=== PATIENT | female | born 1960 | race African-American/Black ===

== ENCOUNTER 2018-03-02 11:22 | Inpatient (IN) | payer MEDICARE, MEDICAID ==
--- NOTE | 2018-03-02 15:51 | HP ---
REASON FOR TRANSFER: Debilitation and weakness. HISTORY OF PRESENT ILLNESS: The patient is a 58-year-old -[place] female with a history of s evere cervical spinal stenosis and peripheral neuropathy with weakness in her upper and lower extremi ties, who apparently fell at her home and was down for almost 24 hours until her daughter found her. She was sent to the emergency room at [facility] and admitted with elevated t roponins, which ruled out for an SC with normal imaging studies. The patient did have significant rh abdomyolysis in addition to her cervical spinal stenosis that was evaluated by Neurosurgery and recom mended to have outpatient followup. Her rhabdomyolysis significantly improved with IV and oral hydra tion in time. The patient though continue to be extremely weak, was unable to care for herself and t hus was appropriate for continued inpatient physical and occupational therapy and is being transferre d to [facility] bed unit. DISCHARGE MEDICATIONS AND ADMISSION MEDICATIONS: Amlodipine 5 mg daily, Cozaar 100 mg daily, Lopress or 12.5 mg b.i.d., DuoNebs p.r.n., and Imodium p.r.n. PAST MEDICAL HISTORY: History of hypertension, COPD, history of CVA, history of multiple TIAs in the past, history of chronic pain, history of migraine headaches, history of benign paroxysmal vertigo, history of bradycardia. PAST SURGICAL HISTORY: Significant for appendectomy. SOCIAL HISTORY: The patient denies any alcohol, smoking or social drug use. She lives with her daparish hter in the [facility] and had been independent in most activities of daily living, although she h as had progressive difficulty with ambulation, requiring a walker due to her peripheral neuropathy an d weakness. FAMILY HISTORY: Positive for mother and father with hypertension and coronary artery disease. REVIEW OF SYSTEMS: Presently, the patient reports her neck pain has significantly improved from her admission, although she still has some pain. She reports chronic weakness and decreased function and use of her upper extremities. She does report debility to wiggle her toes, but has decreased sensat ion to her lower extremities as well. Denies any visual changes, no sore throat, no chest pain or sh ortness of breath. No fevers, chills or night sweats. No nausea, vomiting, or diarrhea. She report s her appetite at baseline. No abdominal pain. No dysuria, hematuria, or change in urinary frequenc y. The patient denies any significant weight loss or weight gain. No significant low back pain repo rted. No recent rashes. PHYSICAL EXAMINATION: VITAL SIGNS: Blood pressure 144/70, respiratory rate 16, pulse is 63. The patient is afebrile, temp erature 98.2. GENERAL: Thin -[place] female, alert and oriented, in no obvious distress, slightly slurred speech noted. HEENT: Atraumatic. Oropharynx, mucous membranes were moist. NECK: Supple, no masses palpated. CHEST: Had some coarse breath sounds, otherwise clear to auscultation. HEART: Regular rate and rhythm. ABDOMEN: Flat, soft, nontender, nondistended, no masses were palpated. EXTREMITIES: The patient had coolness to her upper and lower extremities. 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 PSYCHIATRIC: The patient was in appropriate mood without any anxiety. ASSESSMENT AND PLAN: 1. Diffuse debilitation and weakness. Patient has multiple comorbidities including history of cereb rovascular accident and peripheral neuropathy with weakness in her extremities. Physical therapy and occupational therapy will be ordered. She will be a fall risk and fall precautions will be recommen ded. 2. Hypertension. We will continue patient on amlodipine for now and follow her blood pressures. Trista jimenez is on Lopressor 12.5 mg b.i.d. and she is on DuoNeb p.r.n. She was on Lovenox for deep vein thromb osis prophylaxis, although she is at fall risk. She probably needs some kind of anticoagulation with her history of TIAs. We will consider either Lovenox versus aspirin, SCDs will be ordered, if the p atient is not to ambulatory. 3. Chronic obstructive pulmonary disease, DuoNebs p.r.n. DISPOSITION: Discussed with patient possible long-term plans. She will have difficulty living indep endently due to her multiple comorbidities. Initially did discuss with her long-term placement. She wants to see how she does in therapy and will rediscuss prior discharge. The patient is a DNR by he r wishes.
[2018-03-02] MEDS ORDERED: Milk Of Magnesia 30 ML UDCUP PO PRN (18:27)
[2018-03-02] MEDS ORDERED: Bisacodyl 5 MG TAB PO PRN (18:27)
[2018-03-02] MEDS ORDERED: Loperamide HCl 2 MG CAP PO PRN (18:29)
[2018-03-02] MEDS ORDERED: Acetaminophen 325 MG TAB ONE (22:00)
[2018-03-02] MEDS: Metoprolol Tartrate 25 MG TAB PO SCH (22:04)
[2018-03-02] MEDS: Acetaminophen 325 MG TAB PO PRN (22:05)
[2018-03-03] MEDS: Amlodipine 5 MG TAB PO SCH (09:30)
[2018-03-03] MEDS: Losartan Potassium 50 MG TAB PO SCH (09:31)
[2018-03-03] MEDS: Metoprolol Tartrate 25 MG TAB PO SCH ×2 (09:31→20:09)
[2018-03-03] MEDS: Acetaminophen 325 MG TAB PO PRN (20:09)
[2018-03-04] MEDS: Losartan Potassium 50 MG TAB PO SCH (09:55)
[2018-03-04] MEDS: Metoprolol Tartrate 25 MG TAB PO SCH ×2 (09:56→22:26)
[2018-03-04] MEDS: Amlodipine 5 MG TAB PO SCH (09:56)
[2018-03-04] MEDS ORDERED: Sodium Chloride 0.9% 0 ML ONE (13:46)
[2018-03-04] MEDS: Acetaminophen 325 MG TAB PO PRN (22:26)
[2018-03-05 04:42] LABS: Sodium 134 mmol/L (136-145)
[2018-03-05] MEDS: Acetaminophen 325 MG TAB PO PRN ×2 (08:06→21:59)
[2018-03-05] MEDS: Metoprolol Tartrate 25 MG TAB PO SCH ×2 (08:33→21:59)
[2018-03-05] MEDS: Amlodipine 5 MG TAB PO SCH (08:34)
[2018-03-05] MEDS: Losartan Potassium 50 MG TAB PO SCH (08:34)
[2018-03-06] MEDS: Acetaminophen 325 MG TAB PO PRN (01:58)
[2018-03-06] MEDS: Metoprolol Tartrate 25 MG TAB PO SCH ×2 (10:29→20:41)
[2018-03-06] MEDS: Losartan Potassium 50 MG TAB PO SCH (10:30)
[2018-03-06] MEDS: Amlodipine 5 MG TAB PO SCH (10:30)
[2018-03-07] MEDS: Metoprolol Tartrate 25 MG TAB PO SCH ×2 (08:39→20:34)
[2018-03-07] MEDS: Amlodipine 5 MG TAB PO SCH (08:40)
[2018-03-07] MEDS: Losartan Potassium 50 MG TAB PO SCH (08:40)
[2018-03-08] MEDS: Amlodipine 5 MG TAB PO SCH (09:44)
[2018-03-08] MEDS: Losartan Potassium 50 MG TAB PO SCH (09:45)
[2018-03-08] MEDS: Metoprolol Tartrate 25 MG TAB PO SCH ×2 (09:46→20:55)
[2018-03-08] MEDS: Acetaminophen 325 MG TAB PO PRN (23:39)
[2018-03-09] MEDS: Amlodipine 5 MG TAB PO SCH (09:56)
[2018-03-09] MEDS: Losartan Potassium 50 MG TAB PO SCH (09:57)
[2018-03-09] MEDS: Metoprolol Tartrate 25 MG TAB PO SCH ×2 (09:57→20:57)
[2018-03-10] MEDS: Metoprolol Tartrate 25 MG TAB PO SCH ×2 (09:36→20:57)
[2018-03-10] MEDS: Losartan Potassium 50 MG TAB PO SCH (09:36)
[2018-03-10] MEDS: Amlodipine 5 MG TAB PO SCH (09:37)
[2018-03-11] MEDS: Acetaminophen 325 MG TAB PO PRN (05:37)
[2018-03-11] MEDS: Amlodipine 5 MG TAB PO SCH (09:23)
[2018-03-11] MEDS: Losartan Potassium 50 MG TAB PO SCH (09:25)
[2018-03-11] MEDS: Metoprolol Tartrate 25 MG TAB PO SCH ×2 (09:26→20:07)
[2018-03-12] MEDS: Furosemide 20 MG TAB PO SCH (09:00)
[2018-03-12] MEDS: Metoprolol Tartrate 25 MG TAB PO SCH ×2 (09:01→19:56)
[2018-03-12] MEDS: Amlodipine 5 MG TAB PO SCH (09:01)
[2018-03-12] MEDS: Losartan Potassium 50 MG TAB PO SCH (09:02)
[2018-03-12] MEDS: Acetaminophen 325 MG TAB PO PRN (19:50)
[2018-03-13] MEDS: Amlodipine 5 MG TAB PO SCH (09:03)
[2018-03-13] MEDS: Losartan Potassium 50 MG TAB PO SCH (09:03)
[2018-03-13] MEDS: Furosemide 20 MG TAB PO SCH (09:03)
[2018-03-13] MEDS: Metoprolol Tartrate 25 MG TAB PO SCH ×2 (09:04→20:49)
[2018-03-14] MEDS: Amlodipine 5 MG TAB PO SCH (09:31)
[2018-03-14] MEDS: Metoprolol Tartrate 25 MG TAB PO SCH ×2 (09:34→23:15)
[2018-03-14] MEDS: Losartan Potassium 50 MG TAB PO SCH (09:34)
[2018-03-14] MEDS: Furosemide 20 MG TAB PO SCH (09:34)
[2018-03-14 12:42] LABS: Bilirubin Negative (Negative); Blood, Urine Trace (Negative); Clarity SLIGHTLY (Clear); Glucose, Urine (Dipstick) Negative (Negative); Leukocyte Large (Negative); Nitrite Positive (Negative); Protein, Urine (Dipstick) Negative (Neg-Trace); Specific Gravity, Urine 1.015 (1.005-1.030)
[2018-03-14 12:46] LABS: Bacteria/HPF 4+ HPF (None Seen); Crystals/HPF None Seen HPF (Negative); Hyaline Casts/LPF NONE SEEN LPF (0-3 Hyaline); Other Casts/LPF None Seen LPF (0-3 Hyaline); Oval Fat Bodies/HPF None Seen HPF (None Seen); RBC/HPF 0-3 HPF (0-3); Renal Epithelial None Seen HPF (0-3); Sperm/HPF None Seen HPF (None Seen); Transitional Epithelial NONE SEEN HPF (0-3); Trichomonas/HPF None Seen HPF (None Seen); Yeast-All Forms None Seen HPF (None Seen)
[2018-03-14] MEDS: Acetaminophen 325 MG TAB PO PRN (23:14)
[2018-03-14] MEDS: Sulfameth/Trimethoprim DS 800-160mg TAB PO SCH (23:15)
[2018-03-15] MEDS: Losartan Potassium 50 MG TAB PO SCH (09:26)
[2018-03-15] MEDS: Amlodipine 5 MG TAB PO SCH (09:27)
[2018-03-15] MEDS: Furosemide 20 MG TAB PO SCH (09:27)
[2018-03-15] MEDS: Sulfameth/Trimethoprim DS 800-160mg TAB PO SCH ×2 (09:28→20:53)
[2018-03-15] MEDS: Metoprolol Tartrate 25 MG TAB PO SCH ×2 (09:28→20:53)
[2018-03-16] MEDS: Furosemide 20 MG TAB PO SCH (08:18)
[2018-03-16] MEDS: Losartan Potassium 50 MG TAB PO SCH (08:18)
[2018-03-16] MEDS: Metoprolol Tartrate 25 MG TAB PO SCH ×2 (08:18→20:26)
[2018-03-16] MEDS: Amlodipine 5 MG TAB PO SCH (08:19)
[2018-03-16] MEDS: Sulfameth/Trimethoprim DS 800-160mg TAB PO SCH ×2 (08:20→20:26)
[2018-03-16] MEDS: Acetaminophen 325 MG TAB PO PRN (08:20)
[2018-03-17 04:41] VITALS: BMI 26.2
[2018-03-17] MEDS: Furosemide 20 MG TAB PO SCH (08:24)
[2018-03-17] MEDS: Sulfameth/Trimethoprim DS 800-160mg TAB PO SCH ×2 (08:24→20:56)
[2018-03-17] MEDS: Metoprolol Tartrate 25 MG TAB PO SCH ×2 (08:24→20:56)
[2018-03-17] MEDS: Losartan Potassium 50 MG TAB PO SCH (08:24)
[2018-03-17] MEDS: Amlodipine 5 MG TAB PO SCH (08:24)
[2018-03-17] MEDS: Acetaminophen 325 MG TAB PO PRN (19:17)
[2018-03-18] MEDS: Losartan Potassium 50 MG TAB PO SCH (08:22)
[2018-03-18] MEDS: Sulfameth/Trimethoprim DS 800-160mg TAB PO SCH ×2 (08:22→20:35)
[2018-03-18] MEDS: Metoprolol Tartrate 25 MG TAB PO SCH ×2 (08:23→20:34)
[2018-03-18] MEDS: Amlodipine 5 MG TAB PO SCH (08:23)
[2018-03-18] MEDS: Furosemide 20 MG TAB PO SCH (08:24)
[2018-03-18] MEDS: Acetaminophen 325 MG TAB PO PRN (18:39)
[2018-03-19] MEDS: Acetaminophen 325 MG TAB PO PRN (09:05)
[2018-03-19] MEDS: Sulfameth/Trimethoprim DS 800-160mg TAB PO SCH ×2 (09:06→20:30)
[2018-03-19] MEDS: Losartan Potassium 50 MG TAB PO SCH (09:06)
[2018-03-19] MEDS: Metoprolol Tartrate 25 MG TAB PO SCH ×2 (09:07→20:30)
[2018-03-19] MEDS: Furosemide 20 MG TAB PO SCH (09:07)
[2018-03-19] MEDS: Amlodipine 5 MG TAB PO SCH (09:07)
[2018-03-20] MEDS: Furosemide 20 MG TAB PO SCH (08:39)
[2018-03-20] MEDS: Metoprolol Tartrate 25 MG TAB PO SCH ×2 (08:39→21:39)
[2018-03-20] MEDS: Losartan Potassium 50 MG TAB PO SCH (08:40)
[2018-03-20] MEDS: Amlodipine 5 MG TAB PO SCH (08:40)
[2018-03-20] MEDS: Sulfameth/Trimethoprim DS 800-160mg TAB PO SCH ×2 (08:41→21:39)
[2018-03-21 06:04] VITALS: BP 147/84; TEMP 98.3
[2018-03-21] MEDS: Sulfameth/Trimethoprim DS 800-160mg TAB PO SCH (10:19)
[2018-03-21] MEDS: Metoprolol Tartrate 25 MG TAB PO SCH (10:19)
[2018-03-21] MEDS: Furosemide 20 MG TAB PO SCH (10:19)
[2018-03-21] MEDS: Losartan Potassium 50 MG TAB PO SCH (10:19)
[2018-03-21] MEDS: Amlodipine 5 MG TAB PO SCH (10:20)
== END 2018-03-21 15:45 | disposition home health service (06) | DRG 948 ==
LOC: BURMED 16:57
PROVIDERS: ADMIT Family Medicine; ATTEND Family Medicine
DX: R53.1 Weakness (principal); M62.82 Rhabdomyolysis; M48.02 Spinal stenosis, cervical region; G62.9 Polyneuropathy, unspecified; I10 Essential (primary) hypertension; J44.9 Chronic obstructive pulmonary disease, unspecified; G89.29 Other chronic pain; Z91.81 History of falling; Z66 Do not resuscitate; I69.349 Monoplegia of lower limb following cerebral infarction affecting unspecified side; I69.339 Monoplegia of upper limb following cerebral infarction affecting unspecified side
CPT/HCPCS: 36415; 81001; 82550; 84295; 87077; 87086; 87186; G8978-GP-CK; G8979-GP-CI; G9159-GN-CI; J7050

== ENCOUNTER 2025-03-14 19:28 | Emergency (ER) | payer MEDICARE, MEDICAID | END 2025-03-14 21:30 | disposition home or self-care (01) | LOC: BURERS 19:28 | DX: S01.01XA Laceration without foreign body of scalp, initial encounter (principal); F10.129 Alcohol abuse with intoxication, unspecified; I10 Essential (primary) hypertension; J44.9 Chronic obstructive pulmonary disease, unspecified; W01.0XXA Fall on same level from slipping, tripping and stumbling without subsequent striking against object, initial encounter; Z86.73 Personal history of transient ischemic attack (TIA), and cerebral infarction without residual deficits | CPT/HCPCS: 12002; 70450; 72125; 72192 ==

== ENCOUNTER 2025-03-31 07:52 | Emergency (ER) | payer MEDICARE, MEDICAID | END 2025-03-31 08:24 | disposition home or self-care (01) | LOC: BURERS 07:52 | DX: S01.01XD Laceration without foreign body of scalp, subsequent encounter (principal); I10 Essential (primary) hypertension; J44.9 Chronic obstructive pulmonary disease, unspecified; Z86.73 Personal history of transient ischemic attack (TIA), and cerebral infarction without residual deficits ==